=== PATIENT | male | born 2000 | race Caucasian/White ===

== ENCOUNTER 2020-08-15 08:41 | Emergency (ER) | payer OTHER, SELFPAY ==
[2020-08-15 08:43] VITALS: BP 169/81; PULSE 96; RESP 18; TEMP 36.6; O2SAT 100; BMI 31.1
--- NOTE | 2020-08-15 08:44 | ED_ITS ---
HPI - Male Genitourinary General: Chief complaint: Urogenital-Male Stated complaint: needs tested for STDS Time Seen by Provider: 08/15/20 08:43 Source: patient Mode of arrival: ambulatory Limitations: no limitations History of Present Illness: HPI Narrative: Patient is a 20-year-old male who presents to ED today stating he has positive exposure to chlamydia. Patient states he has only had the one female sexual partner and states he just learned she tested positive for chlamydia. Patient tells me he is not experiencing dysuria or penile discharge. He thinks maybe it is a little harder to start a stream but nothing that he has been overly concerned with. He has not had any rashes/lesions. MD Complaint: possible STD exposure Relieving factors: none Exacerbating factors: none Context: known STD exposure Associated symptoms: Reports no associated symptoms; Deny dysuria, hematuria, nausea or vomiting Related Data: Sexually active: Yes Review of Systems Const: Denies: fever(s), chills, body aches or fatigue ENMT: Denies: throat pain, odynophagia or oral sores GI: Denies: abdominal pain, nausea, vomiting or change in stool character : Denies: flank pain, dysuria, urinary frequency, hematuria, genital pain, genital lesions, penile discharge, testicular pain, painful ejaculations or hematospermia Musc: Denies: back pain Skin/Breast: Denies: rash Physical Exam Const: COMMON NORMALS: no acute distress, average body habitus, patient orient ed x3, no limitations, healthy appearing, alert and well nourished Resp: COMMON NORMALS: normal respiratory effort and clear to auscultation bilaterally AUSCULTATION: clear to auscultation bilaterally Cardio: COMMON NORMALS: regular rate and regular rhythm RATE: regular rate RHYTHM: regular rhythm Neuro: COMMON NORMALS: patient oriented x3 SENSORIUM/ORIENTATION: Yes alert Course Vital Signs: Vital signs: Vital Signs Temperature 97.9 F 08/15/20 08:43 Pulse Rate 96 08/15/20 08:43 Respiratory Rate 18 08/15/20 08:43 Blood Pressure 169/81 08/15/20 08:43 Pulse Oximetry 100 08/15/20 08:43 MDM - Male MDM Narrative: Medical decision making narrative: Will treat with IM rocephin/PO azithromycin to cover for gonorrhea/chlamydia. Recommend sexual abstinence for 7 days. Recommend test of cure at the health department. Female individual has received treatment. Recommend test of cure for her as well. Recommend sterilization of sexual toys. Return to ED precautions given. Discharge Plan Discharge Patient Disposition: Home Clinical Impression: Exposure to STD Condition: Stable Discharge Orders: Discharge ED (Routine); Ordered 08/15/20 Ordered By: Christine Sanchez Patient Instructions: Chlamydia Infection (ED), Sexually Transmitted Diseases (ED), Safe Sex (ED) Activity Restrictions/Additional Instructions: As we discussed you should be contacted with results. If positive, please receive a test of cure through the health department in one week before re- engaging in sexual activity. Make sure all partners are aware of status and are treated. Coding Level of Care Code ED Pneumatic Press Hand for Arian Harrison
[2020-08-15] MEDS: azithromycin 250 mg Tablet 1000 MG PO (09:18)
== END 2020-08-15 09:23 | disposition home or self-care (01) ==
PROVIDERS: Emergency Provider Physician Assistant
DX: Z20.2 Contact with and (suspected) exposure to infections with a predominantly sexual mode of transmission (principal)
CPT/HCPCS: 87491; 87591; 99283; J0696; Q0144

== ENCOUNTER 2025-03-09 19:15 | Emergency (ER) | payer OTHER, SELFPAY ==
[2025-03-09 19:15] VITALS: BP 165/92; PULSE 87; RESP 18; TEMP 37.2; O2SAT 99
--- OUTSIDE RECORDS SUMMARY | 2025-03-09 19:26 | XMS_ITS | Encounter Summary ---
Author Organization [facility] Address [address] [place] [address] Care Team Providers Care Supervisor Car Installations Name Role Phone Mark Sullivan MD Primary Care Provider [phone] [phone] Encounter Details Date Type Department Care Team (Late st Contact Info) Description 12/28/2005 Emergency [facility] Emergency Department [address] 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 Indication 5-year-old male with difficulty breathing. Comparison studies and/or reports: None. Findings: The chest demonstrates no infiltrates, effusions, pneumothoraces, or masses. Cardiacsilhouette is within normal limits. Bones, soft tissues, and situs are normal. Impression: No acute processes. - Dictated By: Lion Rivera D.O. Electronically Signed By: Lion Rivera D.O. Date Signed: 12/28/05 [facility] Procedure Note 02/27/2009 Chest - PA and lateral. Indication 5-year-old male with difficulty breathing. Comparison studies and/or reports: None. Findings: The chest demonstrates no infiltrates, effusions, pneumothoraces, ormasses. Cardiacsilhouette is within normal limits. Bones, soft tissues, and situs are normal. Impression: No acute processes. - Dictated By: Lion Rivera D.O. Electronically Signed By: Lion Rivera D.O. Date Signed: 12/28/05 [facility] Sheldon Cavazos Jr., DO DIAGNOSTIC IMAGING ORDERA BLES Final Result * XR NECK SOFT TISSUE (12/28/2005 4:22 PM CDT) Anatomical Region Laterality Modality Neck Other 12/28/2005 4:22 PM CDT Narrative 12/28/2005 4:22 PM CDT Neck soft tissues. Indication: 5-year-old male - difficulty breathing, evaluate for croup. Comparison studies and/or reports: None. Findings: Frontal and lateral projections of the cervical soft tissues of the pediatric neck arepresented. On the frontal projection there is mild narrowing of the upper airway which mayrepresent underlying croup. Lateral projection demonstrates a normal appearing epiglottis. Airwayis patent. Bones and soft tissues unremarkable. Impression: Minimal narrowing of the upper airway which may suggest croup. Airway patent, no evidence ofepiglottitis. - Dictated By: Lion Rivera D.O. Electronically Signed By: Lion Rivera D.O. Date Signed: 12/28/05 [facility] Procedure Note 02/27/2009 Neck soft tissues. Indication: 5-year-old male - difficulty breathing, evaluate for croup. Comparison studies and/or reports: None. Findings: Frontal and lateral projections of the cervical soft tissues of thepediatric neck arepresented. On the frontal projection there is mild narrowing of the upper airway whichmayrepresent underlying croup. Lateral projection demonstrates a normal appearing epiglottis. Airwayispatent. Bones and soft tissues unremarkable. Impression: Minimal narrowing of the upper airway which may suggest croup. Airwaypatent, no evidence ofepiglottitis. - Dictated By: Lion Rivera D.O. Electronically Signed By: Lion Rivera D.O. Date Signed: 12/28/05 [facility] Sheldon Cavazos Jr., DO DIAGNOSTIC IMAGING ORDERA BLES Final Result documented in this encounter Visit Diagnoses Diagnosis Streptococcal sore throat- Primary documented in this encounter Care Teams Supervisor Car Installations Relationship Specialty Start Date End Date Mark Sullivan MD [address] [address] PCP - General Family Practice 05/28/18 documented as of this encounter
--- OUTSIDE RECORDS SUMMARY | 2025-03-09 19:26 | XMS_ITS | Clinical Summary ---
Author Organization [facility] Address [address] [place] [address] Care Team Providers Care Burner Technician Name Role Phone Mark Sullivan MD Primary Care Provider [phone] [phone] Allergies Active Allergy Reactions Criticality Noted Date Comments Sulfa (Sulfonamide Antibiotics) Rash Low 10/08 Medications mupirocin (BACTROBAN) 2 % Ointment Apply to affected area 2 times daily. 15 Gram 1 9 Active clindamycin HCL (CLEOCIN) 300 mg CapsuleIndicatio ns:Cellulitis of finger, unspecified laterality Take 1 Capsule (300 mg) by mouth 4 times daily. 40 Capsule 1 1 Active Hospital, Clinic, or Other Facility Administered Medication Ordered Dose Route Frequency Start Date End Date Status lidocaine 2 % (XYLOCAINE) injection 2 mLIndications:Cutaneous abscess of left upper extremity 2 mL Ifil ONE TIME ONLY 10/06/2017 Active Active Problems No known active problems Immunizations Immunization Administration Dates Next Due (M-M-R II/PRIORIX)(12 MO UP) MEASLES, MUMPS AND RUBELLA VIRUS VACCINE, 0.5 ML IM/SUBCUT 08/12/2004,04/05/2002 Dt Dtp Dtap Vaccine 08/12/2004, 3,04/05/2002,2001 HIB, Unspecified Formulation 09/27/2002,04/05/20 02,02/01/2002 Hepatitis B Vaccine 08/12/2004,09/27/2002,2001 IPV/OPV 08/12/2004,09/27/2002,02/01/2002 Social History Tobacco Use Types Packs/Day Years Used Date Smoking Tobacco: Never Smokeless Tobacco: Former Snuff Quit: 04/10/2017 Tobacco Cessation:Ready to Q uit: No; Counseling Given: Yes Alcohol Use Standard Drinks/Week Comments No 0 (1 standard drink = 0.6 oz pur e alcohol) Sex and Gender Information Value Date Recorded Sex Assigned at Not on file 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 Gender Identity Not on file Sexual Orientation Not on file Last Filed Vital Signs Vital Sign Reading Time Taken Comments Blood Pressure 100/60 06/12/2019 11:08 AM FIRE HYDRANT MECHANIC Pulse 88 06/12/2019 11:08 AM FIRE HYDRANT MECHANIC Temperature 36.7 C (98.1 F) 06/12/2019 11:08 AM FIRE HYDRANT MECHANIC Respiratory Rate 12 06/12/2019 11:0 8 AM FIRE HYDRANT MECHANIC Oxygen Saturation 96% 06/12/2019 11: 08 AM FIRE HYDRANT MECHANIC Inhaled Oxygen Concentration - - Weight 130.3 kg (287 lb 3.2 oz) 020 11:08 AM FIRE HYDRANT MECHANIC Height 182.9 cm (6') 06/12/2019 11:08 AM FIRE HYDRANT MECHANIC Body Mass Index 38.95 06/12/2019 11:08 AM FIRE HYDRANT MECHANIC Plan of Treatment Health Maintenance Due Date Last Done Comments DTAP/TDAP/TD VACCINES (5 - Tdap) 01/03/2011 08/12/2004, 09/27/2002, 04/05/2002, Additional history exists HPV VACCINES (1 - Male 3-dos e series) 01/03/2015 Preventative Visit- Commercial 04/10/2024 INFLUENZA VACCINE (#1) 2024 06/12/2019, 2018 HEPATITIS B VACCINES Completed 08/12/2004, 09/27/2002, 02/01/2002 Insurance Onsite Care PLUS [facility] CHOICE PLUS Care Teams Burner Technician Relationship Specialty Start Date End Date Mark Sullivan MD [address] [address] PCP - General Family Practice 05/28/18
--- OUTSIDE RECORDS SUMMARY | 2025-03-09 19:26 | XMS_ITS | Clinical Summary ---
Author Organization [facility] Address [address] [place] [address] Care Team Providers Care Stopperer Assembler Name Role Phone Mark Sullivan MD Primary Care Provider [phone] [phone] Allergies Active Allergy Reactions Criticality Noted Date Comments Sulfa (Sulfonamide Antibiotics) Rash Low 10/08 Medications mupirocin (BACTROBAN) 2 % Ointment Apply to affected area 2 times daily. 15 Gram 1 9 Active clindamycin HCL (CLEOCIN) 300 mg CapsuleIndicatio ns:Cellulitis of finger, unspecified laterality Take 1 Capsule (300 mg) by mouth 4 times daily. 40 Capsule 1 1 Active Immunizations Immunization Administration Dates Next Due (M-M-R II/PRIORIX)(12 MO UP) MEASLES, MUMPS AND RUBELLA VIRUS VACCINE, 0.5 ML IM/SUBCUT 08/12/2004,04/05/2002 Dt Dtp Dtap Vaccine 08/12/2004, 3,04/05/2002,2001 HIB, Unspecified Formulation 09/27/2002,04/05/20 02,02/01/2002 Hepatitis B Vaccine 08/12/2004,09/27/2002,2001 IPV/OPV 08/12/2004,09/27/2002,02/01/2002 Social History Tobacco Use Types Packs/Day Years Used Date Smoking Tobacco: Never Smokeless Tobacco: Former Quit: 04/10/2017 Alcohol Use Standard Drinks/Week Comments No 0 (1 standard drink = 0.6 oz pur e alcohol) Sex and Gender Information Value Date Recorded Sex Assigned at Not on file Legal Sex Male 2:06 PM PLAYER DEVELOPMENT MANAGER Gender Identity Not on file Sexual Orientation Not on file Last Filed Vital Signs Vital Sign Reading Time Taken Comments Blood Pressure 100/60 06/12/2019 11:08 AM PLAYER DEVELOPMENT MANAGER Pulse 88 06/12/2019 11:08 AM PLAYER DEVELOPMENT MANAGER Temperature 36.7 C (98.1 F) 06/12/2019 11:08 AM PLAYER DEVELOPMENT MANAGER Respiratory Rate 12 06/12/2019 11:0 8 AM PLAYER DEVELOPMENT MANAGER Oxygen Saturation - - Inhaled Oxygen Concentration - - Weight 130.3 kg (287 lb 3.2 oz) 020 11:08 AM PLAYER DEVELOPMENT MANAGER Height 182.9 cm (6') 06/12/2019 11:08 AM PLAYER DEVELOPMENT MANAGER Body Mass Index 38.95 06/12/2019 11:08 AM PLAYER DEVELOPMENT MANAGER Plan of Treatment Health Maintenance Due Date Last Done Comments DTAP/TDAP/TD VACCINES (5 - Tdap) 01/03/2011 08/12/2004, 09/27/2002, 04/05/2002, Additional history exists HPV VACCINES (1 - Male 3-dos e series) 01/03/2015 INFLUENZA VACCINE (#1) 2024 06/12/2019, 2018 HEPATITIS B VACCINES Completed 08/12/2004, 09/27/2002, 02/01/2002 Care Teams Stopperer Assembler Relationship Specialty Start Date End Date Mark Sullivan MD [address] [facility] [address] [place] [id number] PCP - General Family Practice 05/28/18
--- OUTSIDE RECORDS SUMMARY | 2025-03-09 19:26 | XMS_ITS | Patient Health Record ---
Author Organization [facility] Address [address] [place], [place] [id number] Care Team Providers Care Asbestos Microscopist Name Role Phone NO PCP, NO PCP Primary Care Provider Ofe Resendiz Unavailable [phone] Reason For Referral No Information Plan Of Treatment No Information Insurance Providers Payer Name Payer Address Payer Phone Subscriber Number Group Number Insured Name Patient Relationship to Insured Coverage Start Date Coverage End Date [facility] [address] [address] [place] [address] [phone] [id number] Jesus Meza Self - patient is the insured Medical (General) History Surgical History Surgery Date(Month/Year)
--- OUTSIDE RECORDS SUMMARY | 2025-03-09 19:26 | XMS_ITS | Encounter Summary ---
Author Organization [facility] Address [address] [place] [address] Care Team Providers Care Welding Machine Operator Submerged Arc Name Role Phone Mark Sullivan MD Primary Care Provider [phone] [phone] Encounter Details Date Type Department Care Team (Latest Contact Info) Description 10/20/2004 Outpatient Historical [facility] [address] [place] [address] Savage Aiken MD [address] [facility], [address] [place] [address] GI INJURY NOS-CLOSED (Primary Dx) Social History Tobacco Use Types Packs/Day Years Used Date Smoking Tobacco: Never Assessed Sex and Gender Information Value Date Recorded Sex Assigned at Not on file 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
--- OUTSIDE RECORDS SUMMARY | 2025-03-09 19:26 | XMS_ITS | Encounter Summary ---
Author Organization [facility] Address [address] [place] [address] Care Team Providers Care Placement Officer Name Role Phone Mark Sullivan MD Primary Care Provider [phone] [phone] Encounter Details Date Type Department Care Team (Latest Contact Info) Description 10/19/2004 Outpatient Historical [facility] Gen Spec Surg [place] [address] [place] [address] Savage Aiken MD [address] [facility], [address] [place] [address] Contusion abdominal wall (Primary Dx) Social History Tobacco Use Types Packs/Day Years Used Date Smoking Tobacco: Never Assessed Sex and Gender Information Value Date Recorded Sex Assigned at Not on file 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
--- NOTE | 2025-03-09 20:52 | XRR_ITS ---
PROCEDURE INFORMATION: Exam: XR Left Hand Exam date and time: 03/09/2025 8:54 PM Age: 25 years old Clinical indication: Injury or trauma; Little finger; Injury details: Laceration to distal end of left 5th digit from knife TECHNIQUE: Imaging protocol: Radiologic exam of the left hand. Views: 3 or more views. COMPARISON: No relevant prior studies available. FINDINGS: Bones/joints: Normal. Soft tissues: Normal. XR/XR hand LT min 3V* [id number] IMPRESSION: No acute findings.
--- NOTE | 2025-03-09 20:52 | W.ED.WOUNDLC ---
HPI - Wound/Laceration General: Chief Complaint: Wound/Laceration Stated Complaint: Left Hand Pinky Finger Injury Time Seen by Provider: 03/09/25 20:37 History of Present Illness: 25-year-old male that was cutting a deer, cut his left small finger distally on accident. This happened just prior to arrival. No other factors. No fevers. This occurred just prior to arrival. Laceration is around the DIP medially. This is 3.5 cm. Associated symptoms: Denies chills, fever(s), nausea or vomiting Related Data Previous Rx's ?Medication ?Instructions ?Recorded cephalexin 500 mg capsule 500 mg PO BID 3 days #6 caps 03/09/25 Allergies Allergy/AdvReac Type Severity Reaction Status Date / Time Sulfa (Sulfonamide Allergy ALGY-Rash Verified 08/15/20 08:50 Antibiotics) Review of Systems Const: Denies: fever(s), chills, body aches or fatigue ENMT: Denies: throat pain, odynophagia or oral sores Resp: Denies: dyspnea or non-productive cough GI: Denies: abdominal pain, nausea, vomiting or change in stool character : Denies: flank pain, dysuria, urinary frequency, hematuria, genital pain, genital lesions, penile discharge, testicular pain, painful ejaculations or hematospermia Musc: Reports: joint pain; Denies: back pain Skin/Breast: Reports: new lesions (Laceration); Denies: rash Psych: Denies: anxiety or depression Physical Exam Const: COMMON NORMALS: no acute distress, average body habitus, patient oriented x3, no limitations, healthy appearing, alert and well nourished HENMT: COMMON NORMALS: normocephalic and atraumatic HEAD & SCALP: normocephalic and atraumatic Chest: COMMONS NORMALS: normal inspection of the chest and normal palpation of entire chest wall Resp: COMMON NORMALS: normal respiratory effort and clear to auscultation bilaterally AUSCULTATION: clear to auscultation bilaterally Cardio: COMMON NORMALS: regular rate and regular rhythm RATE: regular rate RHYTHM: regular rhythm GI: COMMON NORMALS: Normal to inspection, nondistended, normoactive bowel sounds present, Soft to palpation, non-tender and No hepatosplenomegaly present PALPATION: Yes Soft to palpation and Yes No hepatosplenomegaly present Extremity: COMMON NORMALS: normal to inspection (laceration), full ROM and capillary refill normal NARRATIVE EXTREMITY EXAM: Distal left fifth finger with circumferential outside laceration of 3.5 cm. Neuro: COMMON NORMALS: patient oriented x3 SENSORIUM/ORIENTATION: Yes alert Psych: COMMON NORMALS: mental status grossly normal, Normal thought process present, cooperative and normal affect THOUGHT PROCESS: Normal thought process present Procedures Laceration Laceration 1: Site: upper extremity Side (If applicable): left (distal left 5th finger) Size (cm): 3.5 Description: linear and flap Depth: simple, single layer Local Anesthetic: lidocaine 1% Amount of anesthesia used (mL): 5 Pre-repair: wound explored and irrigated extensively Skin layer closed with: nylon Size (cm): 4-0 Number of sutures: 4 Technique: simple, interrupted Course Vital Signs: Vital signs: Vital Signs Temperature 99.0 F 03/09/25 19:15 Pulse Rate 87 03/09/25 19:15 Respiratory Rate 18 03/09/25 19:15 Blood Pressure 165/92 03/09/25 19:15 Pulse Oximetry 99 03/09/25 19:15 Oxygen Delivery Me thod Room Air 03/09/25 19:15 MDM - Wound/Laceration Medical Decision Making Patient is a 25-year-old male that was cutting a deer, and sliced his small finger on the left side. He required sutures x 4. He tolerated without issues after digital block. No acute findings were noted on x-ray. All of his questions answered satisfaction Medical Records I reviewed the patient's medical records. Lab Data Radiology Impressions Hand X-Ray 03/09/25 20:52 IMPRESSION: No acute findings. All radiology interpretation(s) finalized by discharge Discharge Plan Discharge Patient Disposition: Home Clinical Impression: Laceration Condition: Stable Prescriptions: New cephalexin 500 mg capsule 500 mg PO BID 3 Days Qty: 6 0RF Discharge Orders: Discharge ED (Routine); Ordered 03/09/25 Ordered By: Laurita Malhotra Discharge Diet: Usual diet Discharge Activity: Resume usual activity Patient Instructions: Laceration (ED), Patient Portal & Lio Instructions Activity Restrictions/Additional Instructions: - Remove sutures in 10 days -Wash with antibacterial soap daily -Redness around the immediate area and clear drainage is appropriate. Outside this area, streaking is not he will need to be seen here. -Cephalexin at the pharmacy for prophylaxis. Use a probiotic daily or active culture yogurt to reduce chances of infectious diarrhea -Tylenol, Profen, and ice for pain - Return to ED if you have worsening streaking, redness, fever greater than 100.4 ?F Thank you for choosing [facility] for your healthcare needs today. You have been screened and evaluated and felt safe for discharge. Health conditions do change or evolve sometimes and as such it is important that you follow up with your Primary Doctor to be re checked, 3-5 days is a general good time frame for follow up. You are always welcome to return to the ED for re assessment if your symptoms are worsening or you have new concerns Print Language: Urdu Coding Level of Care Code ED Sensor Specialist for Arian Harrison
[2025-03-09] MEDS: tetanus-dipt-pertussis 0.5 mL SDV IM (21:24)
== END 2025-03-09 21:42 | disposition home or self-care (01) ==
PROVIDERS: Emergency Provider Physician Assistant
DX: S61.217A Laceration without foreign body of left little finger without damage to nail, initial encounter (principal); W26.0XXA Contact with knife, initial encounter
CPT/HCPCS: 12002; 73130; 90471; 90715; 99283; J9999